=== PATIENT | female | born 1955 | race Caucasian/White ===

== ENCOUNTER 2018-05-20 22:32 | Emergency (ER) | payer SELFPAY ==
--- NOTE | 2018-05-20 23:02 | NUR ---
CALLED PATIENTS NAME THREE TIMES, NO RESPONSE, WILL TRY AGAIN AT A LATER TIME.
--- NOTE | 2018-05-20 23:17 | NUR ---
CALLED PATIENTS NAME THREE TIMES, NO RESPONSE, WILL TRY AGAIN AT A LATER TIME.
--- NOTE | 2018-05-20 23:17 | NUR ---
INFORMED BY CORRECTIONAL MAINTENANCE TECHNICIAN THAT PATIENT WALKED OUT OF ED.
== END 2018-05-20 23:19 | disposition left against medical advice (07) ==
LOC: ER 22:37
DX: Z53.21 Procedure and treatment not carried out due to patient leaving prior to being seen by health care provider (principal)